=== PATIENT | female | born 1990 | race Hispanic/Latino ===

== ENCOUNTER 2024-11-11 13:15 | Emergency (ER) | payer BC ==
[~2024-11-11] VITALS: Ht 157.5 cm; Wt 98.5 kg
[2024-11-11 13:24] VITALS: PULSE 87; RESP 18; TEMP 98.3
[2024-11-11] MEDS: TRAMADOL HCL 50 MG TAB PO STA (13:48)
[2024-11-11] MEDS ORDERED: ULTRAM 50MG50 MG PO (15:13)
[2024-11-11 15:23] VITALS: BP 140/75; O2SAT 99
== END 2024-11-11 15:20 | disposition home or self-care (01) ==
LOC: FSED 13:33
DX: M25.511 Pain in right shoulder (principal); M25.551 Pain in right hip; V86.55XA Driver of 3- or 4- wheeled all-terrain vehicle (ATV) injured in nontraffic accident, initial encounter; Y92.89 Other specified places as the place of occurrence of the external cause
CPT/HCPCS: 99283